=== PATIENT | male | born 1955 | race Caucasian/White ===

== ENCOUNTER 2017-04-18 02:24 | Emergency (ER) | payer OTHER ==
[~2017-04-18] VITALS: Ht 177.8 cm; Wt 130.0 kg
[~2017-04-18 02:24] MED LIST: ALLO100T PO; BUPR150T3 PO; CHOL50006 PO; CYAN1000P IM; FERR325T PO; LEVO125T48 PO; OMEP20CA5 PO; TAB-TAB PO; VITA400C70 PO
[2017-04-18 02:26] VITALS: BP 157/86; PULSE 53; RESP 16; TEMP 97.7; O2SAT 98
[2017-04-18 03:30] VITALS: BP 156/71; PULSE 50; RESP 16; O2SAT 99
--- NOTE | 2017-04-18 03:30 | PD ---
HPI Chief Complaint: Pain: Acute or Chronic Time Seen by Provider: 02:41 Travel History International Travel<30 days: No Contact w/Intl Traveler<30days: No Traveled to known affect area: No History of Present Illness HPI The patient is a 61 year old male who presents to the [facility] emergency department with a history of headaches going down into the jaw for the last few weeks. It became severe tonight. He reports that the pain is a 1010 in severity. The pain is located in his left cheek, ear, behind the eye, and into the sabianism. He denies having any tearing of his eyes. He denies having any vision changes. He reports that the character of the pain as a throbbing sensation. It reportedly feels better to push on the area. It is associated with nausea without vomiting. He denies having any nasal discharge, postnasal drip, cough or congestion. He denies having any fevers or chills. He denies any rashes. Otherwise all review of systems, he denies having any neck pain, chest pain, shortness of breath, abdominal pain, diarrhea, urinary symptoms, one -sided weakness, slurred speech, numbness or tingling to his extremities, difficulty with word finding ability, or facial droop. He has however had symptoms of difficulty starting stream of urine for the last two weeks. PcP: Dr. Connor Gibbs. 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, history of leukopenia, history of depression, TMJ, chronic neck pain, acid reflux Arthritis: Yes Blood Disorders: No Depression: Yes Cancer: Yes (HAIRY CELL LEUKEMIA- 2005, chemotherapy, no radiation.) Cardiovascular Problems: No Chemotherapy: Yes (2006) Diminished Hearing: Yes (LEFT EAR SUQUAMISH) Endocrine: Yes Gout: Yes Genitourinary: Yes (KIDNEY STONES) Hepatitis: No Hiatal Hernia: No Immune Disorder: No Kidney Stones: Yes Musculoskeletal: Yes (CHRONIC NECK PAIN) Neurologic: No Psychiatric: Yes (CLAUSTROPHOBIC) Reproductive: No Respiratory: No Thyroid Disease: Yes Past Surgical History Narrative Surgical The patient's past surgical history is significant for gastric bypass, hernia repair, port placement and then removal, cholecystectomy. Abdominal Surgery: Yes (GASTRIC BYPASS 2007, HERNIA REPAIR X5) AICD: No Appendectomy: Yes Cholecystectomy: Yes Joint Replacement: No Pacemaker: No Other Surgery: Yes (CANCER REMOVED FROM BACK, PORT PLACED/REMOVED) Social History Alcohol Use: No Tobacco Use: No Substance Use: No Allergies-Medications (Allergen,Severity, Reaction): Uncoded Allergies: NITROUS OXIDE (Allergy, Severe, DIZZY, BLACKOUT, VIOLENT, 10/13/09) Reported Meds & Prescriptions Reported Meds & Active Scripts Active Lortab (Hydrocodone-Acetaminophen) 5-325 Mg Tab 1 Tab PO Q6H PRN Augmentin (Amoxicillin-Clavulanate) 875-125 Mg Tab 1 Tab PO BID Reported Allopurinol 100 Mg Tab 100 Mg PO DAILY Vitamin D3 (Cholecalciferol) 2,000 Unit Cap 2,500 Units PO DAILY D-5000 (Cholecalciferol) 5,000 Unit Tab 2,500 PO DAILY Cyanocobalamin Inj (Cyanocobalamin) 1,000 Mcg/Ml Inj 1,000 Mcg IM Q30D Levothyroxine (Levothyroxine Sodium) 125 Mcg Tab 125 Mcg PO DAILY Simvastatin 5 Mg Tab 5 Mg PO DAILY Review of Systems Except as stated in HPI: all other systems reviewed are Neg General / Constitutional: No: Fever Eyes: No: Visual changes HENT: Positive: Headaches, No: Rhinitis, Congestion, Neck Stiffness, Neck Pain Cardiovascular: No: Chest Pain or Discomfort Respiratory: No: Shortness of Breath Gastrointestinal: Positive: Nausea, No: Vomiting, Diarrhea, Abdominal Pain Genitourinary: Positive: Hesitancy, No: Urgency, Frequency, Dysuria, Flank Pain Musculoskeletal: No: Pain Skin: No Rash Neurologic: Positive: Headache, No: Weakness, Focal Abnormalities, Change in Mentation, Slurred Speech, Sensory Disturbance Psychiatric: No: Depression Endocrine: No: Polydipsia Hematologic/Lymphatic: No: Easy Bruising Physical Exam Narrative General: The patient is a well-developed well-nourished female. Head and Neck exam: Head is normocephalic atraumatic. The patient has sinus tenderness on palpation along the left maxillary sinus. The patient reports tenderness on palpation over the left sabianism, left TMJ. The patient has popping of the TMJ joint on palpation with opening and closing his mouth. Eyes: EOMI, pupils are equal round and reactive to light. Nose: Midline septum with pink mucous membranes Mouth: Dentition unremarkable. He has no tooth pain on palpation. Moist mucus membranes. Posterior oropharynx is not erythematous. No tonsillar hypertrophy. Uvula midline. Airway patent. Neck: No palpable lymphadenopathy. No nuchal rigidity. No thyromegaly no spinous process tenderness on palpation. No step-off or crepitus. No erythema or ecchymosis. Cardiovascular: Regular rate and rhythm without murmurs, gallops, or rubs. Lungs: Clear to auscultation bilaterally. No wheezes, rhonchi, or rales. Abdomen: Soft, without tenderness to palpation in all 4 quadrants of the abdomen. No guarding, rebound, or rigidity. Normal bowel sounds are audible. No tenderness on palpation of McBurney's point. Extremities: No clubbing, cyanosis, or edema. 2+ pulses in all 4 extremities. No calf tenderness on palpation. The patient has an older appearing bruises along the left anterior gibbons related to her reported injury. Back: No spinous process tenderness to palpation. No costovertebral angle tenderness to palpation. Neurologic Exam: Grossly nonfocal. Skin Exam: No rash noted. Intact skin that is warm and dry. Data Data Last Documented VS Vital Signs Date Time Temp Pulse Resp B/P (MAP) Pulse Ox O2 Delivery O2 Flow Rate FiO2 04/18/17 03:30 50 16 156/71 (99) 99 Room Air 04/18/17 02:26 97.7 Orders Orders Electrocardiogram (04/18/17 03:50) Complete Blood Count With Diff (04/18/17 03:50) Comprehensive Metabolic Panel (04/18/17 03:50) Troponin I (04/18/17 03:50) Prothrombin Time / Inr (Pt) (04/18/17 03:50) Act Partial Throm Time (Ptt) (04/18/17 03:50) Westergren Sedimentation Rate (04/18/17 03:50) Magnesium (Mg) (04/18/17 03:50) Ct Brain W/O Iv Contrast(Rout) (04/18/17 03:50) Iv Access Insert/Monitor (04/18/17 03:50) Ecg Monitoring (04/18/17 03:50) Oximetry (04/18/17 03:50) Ctv Brain W Iv Contrast W 3d (04/18/17 ) Hydromorphone Pf Inj (Dilaudid Pf Inj) (04/18/17 04:15) Ondansetron Inj (Zofran Inj) (04/18/17 04:15) Iohexol 350 Inj (Omnipaque 350 Inj) (04/18/17 05:08) Hydromorphone Pf Inj (Dilaudid Pf Inj) (04/18/17 05:15) Sodium Chlorid 0.9% 500 Ml Inj (Ns 500 M (04/18/17 05:15) Amoxicil-Clavulanate (Augmentin) (04/18/17 07:00) Ed Discharge Order (04/18/17 08:00) Labs Laboratory Tests Test 04/18/17 03:50 White Blood Count 2.8 TH/MM3 Red Blood Count 4.28 MIL/MM3 Hemoglobin 11.0 GM/DL Hematocrit 33.9 % Mean Corpuscular Volume 79.3 FL Mean Corpuscular Hemoglobin 25.6 PG Mean Corpuscular Hemoglobin Concent 32.3 % Red Cell Distribution Width 15.7 % Platelet Count 104 TH/MM3 Mean Platelet Volume 9.0 FL Neutrophils (%) (Auto) 47.0 % Lymphocytes (%) (Auto) 34.9 % Monocytes (%) (Auto) 10.7 % Eosinophils (%) (Auto) 6.7 % Basophils (%) (Auto) 0.7 % Neutrophils # (Auto) 1.3 TH/MM3 Lymphocytes # (Auto) 1.0 TH/MM3 Monocytes # (Auto) 0.3 TH/MM3 Eosinophils # (Auto) 0.2 TH/MM3 Basophils # (Auto) 0.0 TH/MM3 CBC Comment DIFF FINAL Differential Comment Erythrocyte Sedimentation Rate 13 mm/hr Prothrombin Time 10.4 SEC Prothromb Time International Ratio 0.9 RATIO Activated Partial Thromboplast Time 26.1 SEC Blood Urea Nitrogen 18 MG/DL Creatinine 1.09 MG/DL Random Glucose 92 MG/DL Total Protein 6.5 GM/DL Albumin 3.5 GM/DL Calcium Level 7.9 MG/DL Magnesium Level 2.3 MG/DL Alkaline Phosphatase 115 U/L Aspartate Amino Transf (AST/SGOT) 22 U/L Alanine Aminotransferase (ALT/SGPT) 21 U/L Total Bilirubin 0.2 MG/DL Sodium Level 142 MEQ/L Potassium Level 3.8 MEQ/L Chloride Level 111 MEQ/L Carbon Dioxide Level 26.2 MEQ/L Anion Gap 5 MEQ/L Estimat Glomerular Filtration Rate 69 ML/MIN Troponin I LESS THAN 0.02 NG/ML MDM Medical Decision Making Medical Screen Exam Complete: Yes Emergency Medical Condition: Yes Medical Record Reviewed: Yes Interpretation(s) Last Impressions Head CT 04/18/17 0350 Signed Impressions: Service Date/Time: Tuesday, April 18, 2017 05:03 - CONCLUSION: 1. No evidence of acute intracranial pathology. No masses are identified. Jeison Gooden MD Brain CT 04/18/17 0000 Signed Impressions: Service Date/Time: Tuesday, April 18, 2017 05:03 - CONCLUSION: 1. Normal CT venography of the brain 1. Jeison Gooden MD Differential Diagnosis Venous sinus thrombosis of the brain, versus sinusitis, versus intracranial mass , versus sinus mass, versus abscess, versus temporal arteritis, versus intracranial hemorrhage Narrative Course During the course of the patients emergency department visit, the patients history, examination, and differential diagnosis were reviewed with the patient. The patient had IV access obtained and blood work sent for analysis. The patient was placed on a teletypesetter monitor with oximetry and blood pressure monitoring. An ECG was done on arrival. The patient's ECG shows a sinus bradycardia heart rate of 49. The patient reports that he has had a slow heart rate in the past. The patient has borderline left axis deviation with a moderate intraventricular conduction delay, QRS duration is 117 ms, QTC [address] segment elevation, T waves are inverted in V1, lead 3. The patient was initially provided Dilaudid for pain, Zofran for nausea. Normal saline IV fluids. The patients laboratory studies were reviewed and remarkable for a white count of 2.8, hemoglobin 11, platelets 104 with 10.7 monocytes. Sedimentation rate is normal. CMP is remarkable for GFR 69, chloride 111, calcium 7.9, troponin less than 0.02, PT PTT within normal limits. Radiology studies were reviewed and remarkable for a CT scan of the brain shows no acute intracranial abnormality other than benign mucosal disease of the left maxillary sinus. CTV of the brain shows no evidence of thrombosis or other acute abnormality. Given the patient's location of pain is in the left side of his face, left maxilla with left maxillary sinus pain the patient was started on Augmentin. The patient was given a prescription for Augmentin at discharge. The patient reported feeling improved. The patient is resting comfortably and feels better, is alert and in no distress. The patients results and examination findings were discussed with the patient. The repeat examination is unremarkable and benign. The history, exam, diagnostic testing, and current condition do not suggest any significant pathology to warrant further testing, continued ED treatment, admission, or surgical evaluation at this point. The vital signs have been stable. The patient does not have uncontrollable pain, intractable vomiting, or other significant symptoms. The patient's condition is stable and appropriate for discharge. The patient will pursue further outpatient evaluation with a primary care physician or other designated or consulting physician as indicated in the discharge instructions. The patient expressed understanding and was agreeable with this plan. Physician Communication Physician Communication I spoke to Dr. Gibbs regarding this patient's case at approximately 5:15 AM. He reports that he is well acquainted with the patient from his private practice. He reports that the patient does normally have a low white blood cell count that ranges between approximately 1.8 and 2.4. Diagnosis Primary Impression: Headache Qualified Codes: R51 - Headache Additional Impression: Left maxillary sinusitis Referrals: Connor Gibbs MD PhD 2 days Patient Instructions: Acute Headache (ED), General Instructions, Sinusitis (ED) Med/Other Pt SpecificInfo: Prescription(s) given Scripts Hydrocodone-Acetaminophen (Lortab) 5-325 Mg Tab 1 TAB PO Q6H Y for PAIN, #12 TAB 0 Refills Prov: Mirta Mccollum MD 04/18/17 Amoxicillin-Clavulanate (Augmentin) 875-125 Mg Tab 1 TAB PO BID for Infection, #19 TAB 0 Refills Prov: Mirta Mccollum MD 04/18/17 Disposition: 01 DISCHARGE HOME Condition: Stable Mirta Mccollum MD Apr 18, 2017 03:30
[2017-04-18 04:04] LABS: AUTOMATED NEUTROPHIL # 1.3 TH/MM3 (1.8-7.7); BASOPHIL % 0.7 % (0.0-2.0); EOSINOPHIL # 0.2 TH/MM3 (0-0.4); EOSINOPHIL % 6.7 % (0.0-4.0); HEMATOCRIT 33.9 % (39.0-51.0); HEMO FLAGS DIFF FINAL; LYMPH % 34.9 % (9.0-44.0); MEAN CELL VOLUME 79.3 FL (80.0-100.0); MEAN CORPUSCULAR HEMOGLOBIN 25.6 PG (27.0-34.0); MEAN CORPUSCULAR HGB CONC 32.3 % (32.0-36.0); MONO % 10.7 % (0.0-8.0); PLATELET COUNT 104 TH/MM3 (150-450); RED BLOOD COUNT 4.28 MIL/MM3 (4.50-5.90); RED CELL DISTRIBUTION WIDTH 15.7 % (11.6-17.2); WHITE BLOOD COUNT 2.8 TH/MM3 (4.0-11.0)
[2017-04-18 04:13] LABS: APTT (PATIENT) 26.1 SEC (24.3-30.1); INTERNATIONAL NORMALIZED RATIO 0.9 RATIO; PROTHROMBIN TIME - PATIENT 10.4 SEC (9.8-11.6)
[2017-04-18] MEDS ORDERED: ONDANSETRON HCL 4 MG/2 ML VIAL IV PUSH ONE (04:15)
[2017-04-18] MEDS ORDERED: HYDROmorphone HCL PF 1 MG/ML VIAL IV PUSH ONE (04:15)
[2017-04-18 04:22] LABS: ALT (GPT) 21 U/L (12-78); ANION GAP 5 MEQ/L (5-15); AST (GOT) 22 U/L (15-37); BICARBONATE 26.2 MEQ/L (21.0-32.0); BLOOD UREA NITROGEN 18 MG/DL (7-18); CHLORIDE 111 MEQ/L (98-107); GLOMERULAR FILTRATION RATE 69 ML/MIN (>89); MAGNESIUM 2.3 MG/DL (1.5-2.5); POTASSIUM 3.8 MEQ/L (3.5-5.1); SODIUM (NA) 142 MEQ/L (136-145)
[2017-04-18 04:26] LABS: ALKALINE PHOSPHATASE 115 U/L (45-117); TOTAL BILIRUBIN ADULT 0.2 MG/DL (0.2-1.0)
[2017-04-18] MEDS ORDERED: IOHEXOL 350 MG/ML 10 ML VIAL (for RAD DIAG) IVCONTRAST ONE (05:08)
[2017-04-18] MEDS ORDERED: HYDROmorphone HCL PF 0.5 MG/0.5 ML SYRINGE IV PUSH ONE (05:15)
[2017-04-18] MEDS ORDERED: SODIUM CHLORID 0.9% 500 ML INJ 500 ML IV ONE (05:15)
--- NOTE | 2017-04-18 05:28 | RADRPT ---
EXAM DATE/TIME: 04/18/2017 05:03 [facility] COMPARISON: No previous studies available for comparison. INDICATIONS : Headaches. RADIATION DOSE: 48.72 CTDIvol (mGy) MEDICAL HISTORY : Hypertension. Diabetes mellitus type 2. Leukemia. SURGICAL HISTORY : None. ENCOUNTER: Initial ACUITY: 1 day PAIN SCALE: 6/10 LOCATION: Left cranial TECHNIQUE: Multiple contiguous axial images were obtained of the head. Using automated exposure control and adj ustment of the mA and/or kV according to patient size, radiation dose was kept as low as reasonably a chievable to obtain optimal diagnostic quality images. DICOM format image data is available electro nically for review and comparison. FINDINGS: Noncontrast axial head CT demonstrates the ventricles to be normal in size and configuration with a n ormal sulcal pattern. No acute intracranial hemorrhage, acute cortical infarction, mass or midline sh ift is seen. There is benign-appearing mucosal disease in the left maxillary sinus. Posterior fossa s tructures are unremarkable. Bone windows are unremarkable. CONCLUSION: 1. No evidence of acute intracranial pathology. No masses are identified. Jeison Gooden MD on April 18, 2017 at 5:25 Board Certified Radiologist. This report was verified electronically.
[2017-04-18] MEDS ORDERED: LEVO125T4 PO (05:32)
[2017-04-18] MEDS ORDERED: CYAN1000P IM (05:32)
[2017-04-18] MEDS ORDERED: SIMV5TAB3 PO (05:32)
[2017-04-18] MEDS ORDERED: ALLO100T PO (05:32)
[2017-04-18] MEDS ORDERED: VITA2000 PO (05:32)
[2017-04-18] MEDS ORDERED: D-50TAB PO (05:32)
--- NOTE | 2017-04-18 05:35 | RADRPT ---
EXAM DATE/TIME: 04/18/2017 05:03 [facility] COMPARISON: No previous studies available for comparison. INDICATIONS : Left side cephalgia. IV CONTRAST: 60 cc Omnipaque 350 (iohexol) IV RADIATION DOSE: 27.72 CTDIvol (mGy) MEDICAL HISTORY : Hypertension. Diabetes mellitus type 2. Leukemia. SURGICAL HISTORY : None. ENCOUNTER: Initial ACUITY: 1 day PAIN SCALE: 6/10 LOCATION: Left cranial TECHNIQUE: Volumetric scanning was performed using a multi-row detector CT scanner. The data was post processed with a variety of visualization algorithms including full volume maximum intensity projection, multi -planar sliding thin slab reformation, curved planar reformation, and surface rendering techniques. Using automated exposure control and adjustment of the mA and/or kV according to patient size, radiat ion dose was kept as low as reasonably achievable to obtain optimal diagnostic quality images. DICO M format image data is available electronically for review and comparison. FINDINGS: The dural sinuses are patent without stenosis. The internal cerebral veins and vein of Rodney appear n ormal. Superior sagittal sinus is normal. CONCLUSION: 1. Normal CT venography of the brain 1. Jeison Gooden MD on April 18, 2017 at 5:31 Board Certified Radiologist. This report was verified electronically.
[2017-04-18] MEDS ORDERED: AMOXICILLIN/CLAVULANATE K 875 MG TAB PO ONE (07:00)
[2017-04-18] MEDS ORDERED: HYDR-3533 PO (07:13)
[2017-04-18] MEDS ORDERED: AUGM875T3 PO (07:13)
--- NOTE | 2017-04-18 13:50 | EKG ---
Date Performed: 04/18/2017 Time Performed: 04:17:53 PTAGE: 61 years EKG: SINUS BRADYCARDIA BORDERLINE LEFT AXIS DEVIATION MODERATE INTRAVENTRICULAR CONDUCTION DELAY MINIMAL VOLTAGE CRITERIA FOR LVH, CONSIDER NORMAL VARIANT BORDERLINE ECG PREVIOUS TRACING : 10/13/2009 18.59 DOCTOR: Kwaku Robles Interpretating Date/Time 04/18/2017 13:44:20
== END 2017-04-18 10:12 | disposition home or self-care (01) ==
LOC: NEPE 02:24
DX: R51 Headache (principal); J32.0 Chronic maxillary sinusitis; R94.31 Abnormal electrocardiogram [ECG] [EKG]; M10.9 Gout, unspecified
CPT/HCPCS: 70450; 70496; 80053; 83735; 84484; 85025; 85610; 85652; 85730; 93005; 96361; 96374; 96375; 96376; 99285; J1170; J2405; J7040; Q9967